=== PATIENT | male | born 1975 | race American Indian/Alaskan Native ===

== ENCOUNTER 2018-04-16 18:10 | Emergency (ER) | payer MEDICARE, OTHER ==
--- NOTE | 2018-04-16 19:29 | Emergency Department Report ---
ED Psych HPI - General Chief Complaint: Psych Stated Complaint: MH Time Seen by Provider: 04/16/18 19:06 Source: EMS Mode of arrival: Ambulatory - History of Present Illness Initial Comments: Patient is 42 years old male with history of schizophrenia. Patient brought to the emergency room via EMS for evaluation of abnormal behavior and suicidal ideation. Patient stated that he is hearing voices asking him to kill himself. Patient is aggressive. He denied any homicidal ideation. He stated that he tried to kill himself before by injecting cleaning fluids into his arm. MD Complaint: suicidal ideation, feels depressed Associated Psychiatric Symptoms: depression, suicidal ideation, racing thoughts, auditory hallucinations History of same: Yes Quality: constant Treatments Prior to Arrival: none - Related Data Home Medications Medication Instructions Recorded Confirmed Last Taken Benztropine [Cogentin] 0.5 mg PO BID 04/16/18 04/16/18 Unknown RX: Lisinopril 20 mg PO DAILY 04/16/18 04/16/18 Unknown RX: No Known Home Medications [No 04/16/18 04/16/18 Unknown Reported Home Medications] metFORMIN [Glucophage] 500 mg PO BID 04/16/18 04/16/18 Unknown risperiDONE [RisperDAL] 1 mg PO DAILY 04/16/18 04/16/18 Unknown Allergies Allergy/AdvReac Type Severity Reaction Status Date / Time No Known Allergies Allergy Verified 04/16/18 23:09 ED Review of Systems ROS: Stated complaint: MH Other details as noted in HPI Comment: All other systems reviewed and negative Constitutional: denies: chills, fever Respiratory: denies: cough, orthopnea, shortness of breath, SOB with exertion, SOB at rest, wheezing Cardiovascular: denies: chest pain, palpitations Gastrointestinal: denies: abdominal pain, nausea, vomiting, diarrhea, constipation, hematemesis, melena, hematochezia Musculoskeletal: denies: back pain Neurological: denies: headache, weakness, numbness, paresthesias, confusion Psychiatric: anxiety, depression, auditory hallucinations, visual hallucinations, suicidal thoughts. denies: homicidal thoughts ED Past Medical Hx - Past Medical History Previous Medical History?: Yes Hx Hypertension: Yes Hx CVA: No Hx Heart Attack/AMI: No Hx Congestive Heart Failure: No Hx Diabetes: Yes Hx Deep Vein Thrombosis: No Hx Pulmonary Embolism: No Hx GERD: No Hx Liver Disease: No Hx Renal Disease: No Hx of Cancer: No Hx Sickle Cell Disease: No Hx Arthritis: No Hx Headaches / Migraines: No Hx Seizures: No Hx Kidney Stones: No Hx Psychiatric Treatment: No Hx Asthma: No Hx COPD: No Hx Tuberculosis: No Hx Dementia: No Hx HIV: No - Surgical History Past Surgical History?: No Hx Coronary Stent: No Hx Open Heart Surgery: No Hx Pacemaker: No Hx Internal Defibrillator: No Hx Cholecystectomy: No Hx Appendectomy: No Hx Breast Surgery: No - Social History Smoking Status: Current Every Day Smoker Substance Use Type: None - Medications Home Medications: Home Medications Medication Instructions Recorded Confirmed Last Taken Type Benztropine [Cogentin] 0.5 mg PO BID 04/16/18 04/16/18 Unknown History RX: Lisinopril 20 mg PO DAILY 04/16/18 04/16/18 Unknown History RX: No Known Home Medications [No 04/16/18 04/16/18 Unknown History Reported Home Medications] metFORMIN [Glucophage] 500 mg PO BID 04/16/18 04/16/18 Unknown History risperiDONE [RisperDAL] 1 mg PO DAILY 04/16/18 04/16/18 Unknown History ED Physical Exam - General Limitations: No Limitations General appearance: alert, in no apparent distress, anxious, other (agitated) - Head Head exam: Present: atraumatic, normocephalic, normal inspection - Eye Eye exam: Present: normal appearance, PERRL - ENT ENT exam: Present: normal exam, normal orophraynx, mucous membranes moist - Neck Neck exam: Present: normal inspection, full ROM. Absent: tenderness, me ningismus, lymphadenopathy, thyromegaly - Respiratory Respiratory exam: Present: normal lung sounds bilaterally. Absent: respiratory distress, wheezes, rales, rhonchi, stridor, chest wall tenderness, accessory muscle use, decreased breath sounds, prolonged expiratory - Cardiovascular Cardiovascular Exam: Present: regular rate, normal rhythm, normal heart sounds - GI/Abdominal GI/Abdominal exam: Present: soft, normal bowel sounds. Absent: distended, tenderness, guarding, rebound, rigid, organomegaly, mass, bruit, pulsatile mass, hernia - Extremities Exam Extremities exam: Present: normal inspection, full ROM, normal capillary refill. Absent: pedal edema, calf tenderness - Back Exam Back exam: Present: normal inspection, full ROM. Absent: CVA tenderness (R), CVA tenderness (L), muscle spasm, paraspinal tenderness, vertebral tenderness, rash noted - Neurological Exam Neurological exam: Present: alert, oriented X3, CN II-XII intact, normal gait, reflexes normal - Psychiatric Psychiatric exam: Present: depressed, agitated, manic, suicidal ideation. Absent: homicidal ideation - Skin Skin exam: Present: warm, intact, normal color ED Course Vital Signs 04/16/18 19:03 Temperature 98.2 F Pulse Rate 88 Respiratory 18 Rate Blood Pressure 136/82 Blood Pressure 136/82 [Right] O2 Sat by Pulse 99 Oximetry ED Medical Decision Making - Lab Data Result diagrams: 04/16/18 19:29 04/16/18 19:29 Critical care attestation.: If time is entered above; I have spent that time in minutes in the direct care of this critically ill patient, excluding procedure time. ED Disposition Clinical Impression: Suicidal ideation, Acute psychosis Disposition: DC/TX-65 PSY HOSP/PSY UNIT Is pt being admited?: No Condition: Stable
[2018-04-16 19:49] LABS: Basophils % (Auto) 0.6 % (0.0-1.8); Eosinophils % (Auto) 0.5 % (0.0-4.3); Hematocrit 47.3 % (35.5-45.6); Hemoglobin 16.4 gm/dl (11.8-15.2); Lymphocytes # (Auto) 2.2 K/mm3 (1.2-5.4); Lymphocytes % (Auto) 33.6 % (13.4-35.0); Mean Corpuscular HGB Conc 35 % (32-34); Mean Corpuscular Volume 89 fl (84-94); Monocytes # (Auto) 0.5 K/mm3 (0.0-0.8); Monocytes % (Auto) 7.8 % (0.0-7.3); Platelet Count 204 K/mm3 (140-440); Red Blood Count 5.35 M/mm3 (3.65-5.03); Red Cell Distribution Width 13.7 % (13.2-15.2)
[2018-04-16 20:01] LABS: BUN/Creatinine Ratio 8; Blood Urea Nitrogen 7 mg/dL (9-20); Calcium 9.2 mg/dL (8.4-10.2); Hemolysis Index 17
[2018-04-16 20:19] LABS: Bilirubin,Urine NEG (Negative); Blood,Urine NEG (Negative); Color,Urine Yellow (Yellow); Protein,Urine <15 mg/dL mg/dL (Negative); Urobilinogen,Urine < 2.0 mg/dL (<2.0); WBC,Urine < 1.0 /HPF (0.0-6.0)
[2018-04-16 20:28] LABS: Amphetamine Screen,Urine PRESUMPTIVE NEGATIVE; Benzodiazepines Screen,Urine PRESUMPTIVE NEGATIVE; Cannabinoid Screen,Urine PRESUMPTIVE NEGATIVE; Cocaine Screen,Urine PRESUMPTIVE NEGATIVE; Methadone Screen,Urine PRESUMPTIVE NEGATIVE; Opiate Screen,Urine PRESUMPTIVE NEGATIVE
[2018-04-16] MEDS ORDERED: GLUCOPHAGE ONE (23:08)
[2018-04-16] MEDS ORDERED: COGENTIN ONE (23:09)
[2018-04-16] MEDS ORDERED: GLUCOPHAGE PO ONE (23:09)
[2018-04-16] MEDS ORDERED: COGENTIN PO ONE (23:10)
[2018-04-17] MEDS ORDERED: GLUCOPHAGE PO SCH (08:00)
[2018-04-17 08:08] VITALS: BP 173/135
[2018-04-17] MEDS ORDERED: ZESTRIL PO SCH (10:00)
== END 2018-04-17 11:45 ==
LOC: EEVIPCON 18:10 → ED 18:10
DX: F23 Brief psychotic disorder (principal); I10 Essential (primary) hypertension; E11.9 Type 2 diabetes mellitus without complications; F17.200 Nicotine dependence, unspecified, uncomplicated
CPT/HCPCS: 36415; 80048; 80307; 81001; 82962; 85025; 99285; G0480; 80320

== ENCOUNTER 2018-08-25 16:39 | Emergency (ER) | payer MEDICARE, OTHER ==
--- NOTE | 2018-08-25 16:51 | Emergency Department Report ---
Blank Doc - Documentation Documentation: This is a 43-year-old male that presents with SI. Denies having a plan. This initial assessment/diagnostic orders/clinical plan/treatment(s) is/are subject to change based on patient's health status, clinical progression and re- assessment by fellow clinical providers in the ED. Further treatment and workup at subsequent clinical providers discretion. Patient/guardians urged not to elope from the ED as their condition may be serious if not clinically assessed and managed. Initial orders include: 1- Patient sent to MAIN ED for further evaluation and treatment 2- director talent acquisition was notified to have patient be brought back [facility]. 3- RN was notified to keep patient as close range and observation until room available 4- Patient presents with substantial risk of imminent harm to self, appears to be so unable to care for his/her own physical health and safety as to create an imminently life-endangering crisis, and has committed/expressed life endangering crisis to self. Due to this and other complaints, patient is put on 1013.
[2018-08-25 17:36] LABS: Amphetamine Screen,Urine PRESUMPTIVE NEGATIVE; Benzodiazepines Screen,Urine PRESUMPTIVE NEGATIVE; Cannabinoid Screen,Urine PRESUMPTIVE NEGATIVE; Cocaine Screen,Urine PRESUMPTIVE NEGATIVE; Methadone Screen,Urine PRESUMPTIVE NEGATIVE; Opiate Screen,Urine PRESUMPTIVE NEGATIVE
[2018-08-25 17:47] LABS: Basophils % (Auto) 0.4 % (0.0-1.8); Eosinophils % (Auto) 0.2 % (0.0-4.3); Hematocrit 43.6 % (35.5-45.6); Hemoglobin 14.9 gm/dl (11.8-15.2); Lymphocytes # (Auto) 1.4 K/mm3 (1.2-5.4); Lymphocytes % (Auto) 21.4 % (13.4-35.0); Mean Corpuscular HGB Conc 34 % (32-34); Mean Corpuscular Volume 89 fl (84-94); Monocytes # (Auto) 0.4 K/mm3 (0.0-0.8); Monocytes % (Auto) 5.7 % (0.0-7.3); Platelet Count 186 K/mm3 (140-440); Red Blood Count 4.92 M/mm3 (3.65-5.03); Red Cell Distribution Width 13.4 % (13.2-15.2)
[2018-08-25 17:47] LABS: Bilirubin,Urine NEG (Negative); Blood,Urine NEG (Negative); Color,Urine Straw (Yellow); Protein,Urine <15 mg/dL mg/dL (Negative); Urobilinogen,Urine < 2.0 mg/dL (<2.0)
--- NOTE | 2018-08-25 17:55 | Emergency Department Report ---
ED Psych HPI - General Chief Complaint: Psych Stated Complaint: SUICIDAL Time Seen by Provider: 08/25/18 16:50 Source: patient Mode of arrival: Ambulatory - History of Present Illness Initial Comments: Patient is 43 years old male with history of hypertension, diabetes and schizophrenia. Patient presented to the ER stating that he is depressed and he feel like he wanted to kill himself. Patient stated that he is thinking about overdosing on medication. Patient had a previous attempt last year. Patient also stated that he is hearing voices asking him to get into a fight with other people. MD Complaint: suicidal ideation, feels depressed Associated Psychiatric Symptoms: depression, suicidal ideation, auditory hallucinations History of same: Yes If Self Harm: admits thoughts of, intentional overdose - Related Data Home Medications Medication Instructions Recorded Confirmed Last Taken Benztropine [Cogentin] 0.5 mg PO BID 04/16/18 04/16/18 Unknown Lisinopril 20 mg PO DAILY 04/16/18 04/16/18 Unknown No Known Home Medications [No 04/16/18 04/16/18 Unknown Reported Home Medications] metFORMIN [Glucophage] 500 mg PO BID 04/16/18 04/16/18 Unknown risperiDONE [RisperDAL] 1 mg PO DAILY 04/16/18 04/16/18 Unknown Allergies Allergy/AdvReac Type Severity Reaction Status Date / Time No Known Allergies Allergy Verified 04/16/18 23:09 ED Review of Systems ROS: Stated complaint: SUICIDAL Other details as noted in HPI Comment: All other systems reviewed and negative Constitutional: denies: chills, fever Respiratory: denies: cough, shortness of breath, SOB with exertion Cardiovascular: denies: chest pain, palpitations Gastrointestinal: denies: abdominal pain, nausea, vomiting Musculoskeletal: denies: back pain Neurological: denies: headache, weakness Psychiatric: depression, auditory hallucinations, suicidal thoughts. denies: visual hallucinations, homicidal thoughts ED Past Medical Hx - Past Medical History Previous Medical History?: Yes Hx Hypertension: Yes Hx CVA: No Hx Heart Attack/AMI: No Hx Congestive Heart Failure: No Hx Diabetes: Yes Hx Deep Vein Thrombosis: No Hx Pulmonary Embolism: No Hx GERD: No Hx Liver Disease: No Hx Renal Disease: No Hx Sickle Cell Disease: No Hx Arthritis: No Hx Headaches / Migraines: No Hx Seizures: No Hx Kidney Stones: No Hx Psychiatric Treatment: No Hx Asthma: No Hx COPD: No Hx Tuberculosis: No Hx Dementia: No Hx HIV: No - Surgical History Past Surgical History?: Yes Hx Coronary Stent: No Hx Open Heart Surgery: No Hx Pacemaker: No Hx Internal Defibrillator: No Hx Cholecystectomy: No Hx Appendectomy: No Hx Breast Surgery: No Additional Surgical History: Thumb surgery - Social History Smoking Status: Current Every Day Smoker Substance Use Type: None - Medications Home Medications: Home Medications Medication Instructions Recorded Confirmed Last Taken Type Benztropine [Cogentin] 0.5 mg PO BID 04/16/18 04/16/18 Unknown History Lisinopril 20 mg PO DAILY 04/16/18 04/16/18 Unknown History No Known Home Medications [No 04/16/18 04/16/18 Unknown History Reported Home Medications] metFORMIN [Glucophage] 500 mg PO BID 04/16/18 04/16/18 Unknown History risperiDONE [RisperDAL] 1 mg PO DAILY 04/16/18 04/16/18 Unknown History ED Physical Exam - General Limitations: No Limitations General appearance: alert, in no apparent distress - Head Head exam: Present: atraumatic, normocephalic, normal inspection - Eye Eye exam: Present: normal appearance, PERRL - ENT ENT exam: Present: normal exam, normal orophraynx, mucous membranes moist - Neck Neck exam: Present: normal inspection, full ROM. Absent: tenderness, meningismus, lymphadenopathy, thyromegaly - Respiratory Respiratory exam: Present: normal lung sounds bilaterally. Absent: respiratory distress, wheezes, rales, rhonchi, chest wall tenderness, accessory muscle use, decreased breath sounds, prolonged expiratory - Cardiovascular Cardiovascular Exam: Present: regular rate, normal rhythm, normal heart sounds - GI/Abdominal GI/Abdominal exam: Present: soft, normal bowel sounds. Absent: distended, te nderness, guarding, rebound, rigid, organomegaly, mass, pulsatile mass, hernia - Extremities Exam Extremities exam: Present: normal inspection, full ROM, normal capillary refill. Absent: pedal edema, calf tenderness - Back Exam Back exam: Present: normal inspection, full ROM. Absent: tenderness, CVA tenderness (R), CVA tenderness (L), muscle spasm, paraspinal tenderness, vertebral tenderness, rash noted - Neurological Exam Neurological exam: Present: alert, oriented X3, CN II-XII intact, normal gait, reflexes normal - Psychiatric Psychiatric exam: Present: depressed, suicidal ideation. Absent: agitated, anxious, flat affect, manic, homicidal ideation - Skin Skin exam: Present: warm, intact, normal color ED Course Vital Signs 08/25/18 16:51 Temperature 98.2 F Pulse Rate 95 H Respiratory 18 Rate O2 Sat by Pulse 100 Oximetry Critical care attestation.: If time is entered above; I have spent that time in minutes in the direct care of this critically ill patient, excluding procedure time. ED Disposition Clinical Impression: Suicidal ideation Disposition: [id number]/TX-65 PSY HOSP/PSY UNIT Is pt being admited?: No Condition: Stable
[2018-08-25 18:06] LABS: BUN/Creatinine Ratio 13; Blood Urea Nitrogen 13 mg/dL (9-20); Calcium 9.4 mg/dL (8.4-10.2); Hemolysis Index 4
[2018-08-25] MEDS ORDERED: HumuLIN R SUB-Q ONE (19:27)
[2018-08-25] MEDS: GLUCOPHAGE PO SCH (23:46)
[2018-08-25] MEDS: ZESTRIL PO SCH (23:46)
[2018-08-26] MEDS ORDERED: D50W (25GM) Syringe IV PRN (01:32)
[2018-08-26] MEDS: GLUCOPHAGE PO SCH ×2 (08:50→19:03)
[2018-08-26] MEDS: HumuLIN R SUB-Q SCH ×3 (08:50→17:55)
[2018-08-26 09:39] LABS: Alanine Aminotransferase 14 units/L (7-56)
[2018-08-26] MEDS: ZESTRIL PO SCH (09:45)
--- NOTE | 2018-08-26 09:54 | Consultation ---
History of Present Illness - Reason for Consult Consult date: 08/26/18 Reason for consult: Mental Health Evaluation Requesting physician: LEAH PORRAS - Chief Complaint Chief complaint: 'I feel a certain way" - History of Present Psychiatric Illness 43 years old AA male who presented to the ER for SI's and AH's. Today the patient is calm during the assessment. He stated that he felt like someone at his residence was "bothering" him, so he had some sort of outburst that required an ER visit. Throughout the interview, the patient smiled inappropriately. His speech was rapid, possibly experiencing paranoia. He stated being inpatient at several mental health facilities in the past. He stated that he do not have a outpatient psychiatrist. He stated that he receive the monthly Haldol injection from [facility] [place] [facility]. He denies SI/HI's and VH's. he would not confirm or deny AH's. He denies a poor appetite and erratic sleep. Per notes, the patient has a hx of suicide attempt. Medications and Allergies Allergies Allergy/AdvReac Type Severity Reaction Status Date / Time No Known Allergies Allergy Verified 04/16/18 23:09 Home Medications Medication Instructions Recorded Confirmed Last Taken Type Benztropine [Cogentin] 0.5 mg PO BID 04/16/18 08/25/18 Unknown History Lisinopril 20 mg PO DAILY 04/16/18 08/25/18 Unknown History No Known Home Medications [No 04/16/18 08/26/18 Unknown History Reported Home Medications] metFORMIN [Glucophage] 500 mg PO BID 04/16/18 08/25/18 Unknown History risperiDONE [RisperDAL] 1 mg PO DAILY 04/16/18 08/25/18 Unknown History Active Meds: Active Medications Dextrose (D50w (25gm) Syringe) 50 ml IV PRN PRN PRN Reason: Hypoglycemia Insulin Human Regular (Humulin R) 0 units SUB-Q [facility]; Protocol Stop: 08/30/18 07:29 Last Admin: 08/26/18 08:50 Dose: 6 units Documented by: Lisinopril (Zestril) 20 mg PO DAILY [facility] Last Admin: 08/25/18 23:46 Dose: Not Given Documented by: Metformin HCl (Glucophage) 500 mg PO BIDDIAB [facility] Last Admin: 08/26/18 08:50 Dose: 500 mg Documented by: Past psychiatric history - Past Medical History Past Medical History: diabetes, hypertension Past Surgical History: No surgical history - past Psychiatric treatment and history psychiatric treatment history: Several inpatient psy settings. Denies a fam psy hx. - Social History Social history: lives with family Mental Status Exam - Vital signs Last Vital Signs Temp 97.9 F 08/25/18 21:18 Pulse 62 08/25/18 21:18 Resp 18 08/25/18 21:18 BP 122/68 08/25/18 21:18 Pulse Ox 97 08/25/18 21:18 - Exam Narrative exam: MSE: Appearance: calm, cooperative Behavior: poor eye contact Speech: rapid Mood: labile Affect: congruent to mood Thought Process: tangential Thought Content: denies SI/HI's and VH's, paranoia Motor Activity: ambulatory Cognition: A/O x3 Insight: variable Judgment: variable Results Result Diagrams: 08/25/18 17:15 08/25/18 17:15 Abnormal lab results 08/25/18 08/25/18 08/25/18 Range/Units 14:25 17:15 17:15 Seg Neutrophils % 72.3 H (40.0-70.0) % Sodium 136 L (137-145) mmol/L Glucose 466 H (75-100) mg/dL POC Glucose (70-105) Ur Specific [place] 1.035 H (1.003-1.030) Salicylates (2.8-20.0) mg/dL Acetaminophen (10.0-30.0) ug/mL Valproic Acid (50-100) ug/mL 08/25/18 08/25/18 08/25/18 Range/Units 17:15 17:15 23:36 Seg Neutrophils % (40.0-70.0) % Sodium (137-145) mmol/L Glucose (75-100) mg/dL POC Glucose 281 H (70-105) Ur Specific [place] (1.003-1.030) Salicylates < 0.3 L (2.8-20.0) mg/dL Acetaminophen < 5.0 L (10.0-30.0) ug/mL Valproic Acid (50-100) ug/mL 08/26/18 Range/Units 09:05 Seg Neutrophils % (40.0-70.0) % Sodium (137-145) mmol/L Glucose (75-100) mg/dL POC Glucose (70-105) Ur Specific [place] (1.003-1.030) Salicylates (2.8-20.0) mg/dL Acetaminophen (10.0-30.0) ug/mL Valproic Acid < 2.8 L (50-100) ug/mL All other labs normal. Assessment and Plan Assessment and plan: Impression: Schizophrenia. Today the patient is calm during the assessment. The patient is responding to some type of stimuli. UDS is negative. DDx: Bipolar DO with psychosis, Schizoaffective DO Recommendation/Plan: Continue 1013 and Start Depakote 500 mg PO BID for mood. Per the patient , he receive the monthly Haldol injection. Recommend that the patient is seen by an ACT Team in the outpatient setting. Dispo: The patient was referred to inpatient psy services. Will staff with Dr Landen Sanchez.
[2018-08-26 20:18] VITALS: BP 106/80
== END 2018-08-26 21:01 ==
LOC: ED 16:39 → EEVIPCON 16:39 → ED 08-26 21:01
DX: T65.92XA Toxic effect of unspecified substance, intentional self-harm, initial encounter (principal); F32.9 Major depressive disorder, single episode, unspecified; F20.9 Schizophrenia, unspecified; I10 Essential (primary) hypertension; E11.9 Type 2 diabetes mellitus without complications; Y92.89 Other specified places as the place of occurrence of the external cause
CPT/HCPCS: 36415; 80048; 80164; 80307; 81001; 82150; 82962; 83690; 84075; 84450; 84460; 85025; 96372; 99285; G0480; 80320; J1815